=== PATIENT | female | born 2000 | race Caucasian/White ===

== ENCOUNTER 2023-04-28 00:45 | Emergency (ER) | payer OTHER ==
[~2023-04-28] VITALS: Ht 160 cm; Wt 80.7 kg
[2023-04-28 01:15] VITALS: BP 134/80; PULSE 86; RESP 17; TEMP 97.4; O2SAT 97
[2023-04-28 01:30] VITALS: BP 134/80; PULSE 86; RESP 17; TEMP 97.4; O2SAT 97
--- NOTE | 2023-04-28 01:35 | NUR ---
PT TAKEN TO BED 2
--- NOTE | 2023-04-28 03:25 | NUR ---
Patient discharged. Written and verbal after care instructions given and explained. Patient verbalized understanding. Ambulatory with steady gait. All questions addressed prior to discharge. Advised to follow up with PMD.
== END 2023-04-28 03:25 | disposition home or self-care (01) ==
LOC: MED 00:45
DX: H92.03 Otalgia, bilateral (principal); H91.93 Unspecified hearing loss, bilateral
CPT/HCPCS: 99281